=== PATIENT | female | born 1980 | race Two or more races ===

== ENCOUNTER 2017-11-22 08:03 | Outpatient (CLI) | payer BC, MEDICAID, OTHER ==
[~2017-11-22 08:03] MED LIST: FERUMOXYTOL (NON-ESRD) 510 MG/NS 100 ML IV PRN; NORMAL SALINE 250 ML IV PRN
[2017-11-22 08:18] VITALS: BP 117/79
== END 2017-11-22 10:05 | disposition home or self-care (01) ==
LOC: II 08:03 → 5TH 08:05 → II 10:05
PROVIDERS: ATTEND Internal Medicine
PROC: 3E033GC Introduction of Other Therapeutic Substance into Peripheral Vein, Percutaneous Approach (ICD-10-PCS; principal; 2017-11-22)
DX: D50.8 Other iron deficiency anemias (principal); K90.9 Intestinal malabsorption, unspecified
CPT/HCPCS: 96367; Q0138; 96365

== ENCOUNTER 2017-11-29 08:20 | Outpatient (CLI) | payer MEDICAID ==
[2017-11-29 09:04] VITALS: BP 113/76
== END 2017-11-29 09:50 | disposition home or self-care (01) ==
LOC: II 08:20 → 5TH 08:23 → II 09:50
PROVIDERS: ATTEND Internal Medicine
PROC: 3E033GC Introduction of Other Therapeutic Substance into Peripheral Vein, Percutaneous Approach (ICD-10-PCS; principal; 2017-11-29)
DX: D50.8 Other iron deficiency anemias (principal); K90.9 Intestinal malabsorption, unspecified
CPT/HCPCS: 96365; Q0138

== ENCOUNTER 2018-10-28 19:11 | Emergency (ER) | payer BC, MEDICAID ==
--- NOTE | 2018-10-28 20:49 | ER Document Report ---
ED Medical Screen (RME) - General Chief Complaint: Vag Bleeding, +preg <12wks Stated Complaint: ABDOMINAL PAIN AND VAGINAL BLEEDING Time Seen by Provider: 10/28/18 20:27 Primary Care Provider: SEYMOUR AKERS MD [Primary Care Provider] - Follow up as needed Notes: Patient is a G3, 38-year-old female who presents to the emergency department with a chief complaint of left sided pelvic pain. Patient states th at she is 10 weeks . She states that she noticed she was having some green vaginal discharge a few days ago and today she states that it was a mixed bright red and green discharge. The patient was seen here on 12 October and was diagnosed with a left ovarian cyst. Patient states that she feels like there is a lot of pressure in her abdomen. She is [facility] by [facility]. She took Tylenol shortly prior to arrival. Exam: Soft mildly tender left abdomen. I have greeted and performed a rapid initial assessment of this patient. A comprehensive ED assessment and evaluation of the patient, analysis of test results and completion of medical decision making process will be conducted by an additional ED providers. TRAVEL OUTSIDE OF THE [place] IN LAST 30 DAYS: No - Related Data Allergies/Adverse Reactions: No Known Allergies Allergy (Verified 10/28/18 20:30) Past Medical History - General Last Menstrual Period: 08/14/2018 - Social History Frequency of alcohol use: None Drug Abuse: None Renal/ Medical History: Denies: Hx Peritoneal Dialysis GI Medical History: Reports: Hx Gastroesophageal Reflux Disease - Immunizations Hx Diphtheria, Pertussis, Tetanus Vaccination: Yes Physical Exam - Vital signs Vitals: Temp Pulse Resp BP Pulse Ox 97.8 F 78 14 109/68 100 10/28/18 20:18 10/28/18 20:18 10/28/18 20:18 10/28/18 20:18 10/28/18 20:18 Course - Vital Signs Vital signs: Temp Pulse Resp BP Pulse Ox 97.8 F 78 14 109/68 100 10/28/18 20:18 10/28/18 20:18 10/28/18 20:18 10/28/18 20:18 10/28/18 20:18 Doctor's Discharge - Discharge Referrals: SEYMOUR AKERS MD [Primary Care Provider] - Follow up as needed
[2018-10-28 21:03] LABS: ABSOLUTE BASOPHILS # (AUTO) 0.1 10^3/uL (0.0-0.2); ABSOLUTE EOSINOPHILS # (AUTO) 0.2 10^3/uL (0.0-0.6); ABSOLUTE LYMPHOCYTES (AUTO) 2.8 10^3/uL (0.5-4.7); ABSOLUTE MONOCYTES (AUTO) 0.9 10^3/uL (0.1-1.4); BASOPHILS % (AUTO) 0.7 % (0-2); EOSINOPHILS % (AUTO) 1.7 % (0-6); HEMATOCRIT 38.1 % (36.0-47.0); HEMOGLOBIN 13.1 g/dL (12.0-15.5); LYMPHOCYTES % (AUTO) 23.6 % (13-45); MEAN CORPUSCULAR HEMOGLOBIN 28.5 pg (27.0-33.4); MEAN CORPUSCULAR HGB CONC 34.3 g/dL (32.0-36.0); MEAN CORPUSCULAR VOLUME 83 fl (80-97); MONOCYTES % (AUTO) 7.4 % (3-13); PLATELET COUNT 319 10^3/uL (150-450); RED BLOOD COUNT 4.59 10^6/uL (3.72-5.28); RED CELL DISTRIBUTION WIDTH 13.7 % (11.5-14.0); SEGMENTED NEUTROPHILS % (AUTO) 66.6 % (42-78); TOTAL CELLS COUNTED % (AUTO) 100 %
[2018-10-28 21:17] LABS: APPEARANCE,URINE SLIGHTLY-CLOUDY; BILIRUBIN,URINE NEGATIVE (NEGATIVE); COLOR,URINE YELLOW; GLUCOSE, URINE NEGATIVE (NEGATIVE); KETONES,URINE TRACE mg/dL (NEGATIVE); LEUKOCYTE ESTERASE,URINE NEGATIVE (NEGATIVE); NITRITE,URINE NEGATIVE (NEGATIVE); PROTEIN,URINE NEGATIVE (NEGATIVE); URINE SPECIFIC GRAVITY 1.032; UROBILINOGEN,URINE NEGATIVE mg/dL (<2.0)
[2018-10-28 21:19] LABS: ALANINE AMINOTRANSFERASE 14 U/L (9-52); ALBUMIN 3.9 g/dL (3.5-5.0); ALKALINE PHOSPHATASE 73 U/L (38-126); ANION GAP 9 (5-19); ASPARTATE AMINO TRANSFERASE 21 U/L (14-36); BILIRUBIN,DIRECT 0.2 mg/dL (0.0-0.4); BILIRUBIN,TOTAL 0.3 mg/dL (0.2-1.3); BLOOD UREA NITROGEN 12 mg/dL (7-20); CALCIUM 9.8 mg/dL (8.4-10.2); CARBON DIOXIDE 26 mmol/L (22-30); CHLORIDE 103 mmol/L (98-107); GLUCOSE 82 mg/dL (75-110); POTASSIUM 3.8 mmol/L (3.6-5.0)
--- NOTE | 2018-10-28 22:32 | RADIOLOGY REPORT (SQ) ---
EXAM DESCRIPTION: US TRANSVAGINAL COMPLETED DATE/TME: 10/28/2018 20:45 CLINICAL HISTORY: 38 years, Female, vaginal bleeding; pelvic pain COMPARISON: 10/12/2018 ultrasound TECHNIQUE: Emergent OB ultrasound LIMITATIONS: None. FINDINGS: The uterus measures 12.0 x 7.6 x 8.8 cm. There is a single, live intrauterine gestation with heart tones at 160 bpm. Current ultrasound age is 10 weeks 6 days. The maternal left ovary is not well seen likely due to its position in the pelvis. The right ovary measures 3.2 x 2.1 x 1.9 cm. Normal flow to the right ovary. No adnexal cyst or mass. No free fluid. Cervical length is 3.4 cm. There is a 1.2 x 2.1 x 1.0 cm hypoechoic area adjacent to the gestational sac likely small subchorionic hemorrhage. IMPRESSION: Single, live intrauterine gestation. Continued nonemergent follow-up recommended. Probable small subchorionic hemorrhage, as above copyright 2010 [employer]- All Rights Reserved
--- NOTE | 2018-10-28 23:11 | ER Document Report ---
ED General - General Chief Complaint: Vag Bleeding, +preg <12wks Stated Complaint: ABDOMINAL PAIN AND VAGINAL BLEEDING Time Seen by Provider: 10/28/18 20:27 Primary Care Provider: SEYMOUR AKERS MD [ACTIVE STAFF] - Follow up as needed TRAVEL OUTSIDE OF THE [place] IN LAST 30 DAYS: No - HPI Notes: Patient is a 38-year-old female that presents to the emergency department for chief complaint of abdominal pain and vaginal bleeding. Patient is G3, P1. She states she has had lower abdominal cramping that radiates into her low back intermittently throughout the day. She also reports vaginal bleeding that is a light pink. She has had one appointment with [facility] for her current . She denies any complications until this point. She believes her blood type is O+ and did not require RhoGam with previous . She does have a history of one miscarriage in the past. She denies any fever, chills, nausea and diarrhea. She states she had one episode of emesis yesterday. Past Medical History: Reviewed in chart Past Surgical History: Reviewed in chart Social History: Denies drugs alcohol or tobacco Family History: Reviewed and noncontributory for presenting illness Allergies: Reviewed, see documented allergy list. REVIEW OF SYSTEMS: CONSTITUTIONAL : No fever No chills No diaphoresis No recent illness EENT: No vision changes No congestion No sore throat CARDIOVASCULAR: No chest pain No palpitations RESPIRATORY: No shortness of breath No cough No difficulty breathing GASTROINTESTINAL: abdominal pain No nausea No vomiting No diarrhea GENITOURINARY: Vaginal bleeding No dysuria No hematuria No difficulty urinating MUSCULOSKELETAL: No back pain No leg pain No arm pain SKIN: No rashes No lesions LYMPHATIC: No swollen, enlarged glands. NEUROLOGICAL: No lightheadedness No headache No weakness No paresthesias PSYCHIATRIC: No anxiety No depression PHYSICAL EXAMINATION: Vital signs reviewed, nursing noted reviewed. GENERAL: Well-appearing, well-nourished and in no acute distress. HEAD: Atraumatic, normocephalic. EYES: Eyes appear normal, extraocular movements intact, sclera anicteric, co njunctiva are normal. ENT: nares patent, oropharynx clear without exudates. Moist mucous membranes. NECK: Normal range of motion, supple without lymphadenopathy LUNGS: Breath sounds clear to auscultation bilaterally and equal. No wheezes rales or rhonchi. HEART: Regular rate and rhythm without murmurs ABDOMEN: Soft, mild suprapubic tenderness, normoactive bowel sounds. No rebound, guarding, or rigidity. No masses appreciated. EXTREMITIES: Nontender, good range of motion, no pitting or edema. NEUROLOGICAL: No focal neurological deficits. Moves all extremities spontaneously Motor and sensory grossly intact on exam. PSYCH: Normal mood, normal affect. SKIN: Warm, Dry, normal turgor, no rashes or lesions noted on exposed skin - Related Data Allergies/Adverse Reactions: No Known Allergies Allergy (Verified 10/28/18 20:30) Past Medical History - General Last Menstrual Period: 08/14/2018 - Social History Smoking Status: Never Smoker Frequency of alcohol use: None Drug Abuse: None Family History: None Patient has suicidal ideation: No Patient has homicidal ideation: No Renal/ Medical History: Denies: Hx Peritoneal Dialysis GI Medical History: Reports: Hx Gastroesophageal Reflux Disease - Immunizations Hx Diphtheria, Pertussis, Tetanus Vaccination: Yes Physical Exam - Vital signs Vitals: Temp Pulse Resp BP Pulse Ox 97.8 F 78 14 109/68 100 10/28/18 20:18 10/28/18 20:18 10/28/18 20:18 10/28/18 20:18 10/28/18 20:18 Course - Re-evaluation Re-evalutation: 10/28/18 23:09 Vitals reviewed. Nursing notes reviewed. Patient's urinalysis is negative for infection. It does have a little bit of blood in it likely from her vaginal bleeding. Ultrasound was performed today which shows single live intrauterine gestation at 10 weeks and 6 days. heart tones were 160. She does not have ectopic . Patient's lab work shows a mild leukocytosis which is likely secondary to her . She is not acutely anemic. Patient did show me a card on her phone from the [email or web address] since she is a blood donor that shows her blood type is O+. I still recommended getting Rh factor drawn today to confirm that she is not requiring RhoGam. Patient will follow closely with [facility]. She was counseled on return precautions. Laboratory 10/28/18 10/28/18 10/28/18 20:50 20:50 20:50 WBC 12.0 H RBC 4.59 Hgb 13.1 Hct 38.1 MCV 83 MCH 28.5 MCHC 34.3 RDW 13.7 Plt Count 319 Seg Neutrophils % 66.6 Lymphocytes % 23.6 Monocytes % 7.4 Eosinophils % 1.7 Basophils % 0.7 Absolute Neutrophils 8.0 Absolute Lymphocytes 2.8 Absolute Monocytes 0.9 Absolute Eosinophils 0.2 Absolute Basophils 0.1 Sodium 137.6 Potassium 3.8 Chloride 103 Carbon Dioxide 26 Anion Gap 9 BUN 12 Creatinine 0.90 Est GFR ( Amer) > 60 Est GFR (Non-Af Amer) > 60 Glucose 82 Calcium 9.8 Total Bilirubin 0.3 Direct Bilirubin 0.2 Neonat Total Bilirubin Not Reportable Neonat Direct Bilirubin Not Reportable Neonat Indirect Bili Not Reportable AST 21 ALT 14 Alkaline Phosphatase 73 Total Protein 7.0 Albumin 3.9 Serum HCG, Qual POSITIVE H Beta HCG, Quant 86486.00 H Total Beta HCG POSITIVE Urine Color Urine Appearance Urine pH Ur Specific [place] Urine Protein Urine Glucose (UA) Urine Ketones Urine Blood Urine Nitrite Urine Bilirubin Urine Urobilinogen Ur Leukocyte Esterase Urine WBC (Auto) Urine RBC (Auto) Squamous Epi Cells Auto Urine Mucus (Auto) Urine Ascorbic Acid 10/28/18 20:50 WBC RBC Hgb Hct MCV MCH MCHC RDW Plt Count Seg Neutrophils % Lymphocytes % Monocytes % Eosinophils % Basophils % Absolute Neutrophils Absolute Lymphocytes Absolute Monocytes Absolute Eosinophils Absolute Basophils Sodium Potassium Chloride Carbon Dioxide Anion Gap BUN Creatinine Est GFR ( Amer) Est GFR (Non-Af Amer) Glucose Calcium Total Bilirubin Direct Bilirubin Neonat Total Bilirubin Neonat Direct Bilirubin Neonat Indirect Bili AST ALT Alkaline Phosphatase Total Protein Albumin Serum HCG, Qual Beta HCG, Quant Total Beta HCG Urine Color YELLOW Urine Appearance SLIGHTLY-CLOUDY Urine pH 6.0 Ur Specific [place] 1.032 Urine Protein NEGATIVE Urine Glucose (UA) NEGATIVE Urine Ketones TRACE H Urine Blood MODERATE H Urine Nitrite NEGATIVE Urine Bilirubin NEGATIVE Urine Urobilinogen NEGATIVE Ur Leukocyte Esterase NEGATIVE Urine WBC (Auto) 4 Urine RBC (Auto) 19 Squamous Epi Cells Auto 19 Urine Mucus (Auto) OCC Urine Ascorbic Acid 40 H Obstetrics Ultrasound 10/28/18 20:45 IMPRESSION: Single, live intrauterine gestation. Continued nonemergent follow-up recommended. Probable small subchorionic hemorrhage, as above copyright 2011 [employer] All Rights Reserved - Vital Signs Vital signs: Temp Pulse Resp BP Pulse Ox 98.5 F 68 16 106/69 97 10/28/18 22:19 10/28/18 22:19 10/28/18 22:19 10/28/18 22:19 10/28/18 22:19 - Laboratory Result Diagrams: 10/28/18 20:50 10/28/18 20:50 Laboratory results interpreted by me: 10/28/18 10/28/18 10/28/18 20:50 20:50 20:50 WBC 12.0 H Serum HCG, Qual POSITIVE H Beta HCG, Quant 71703.00 H Urine Ketones Urine Blood Urine Ascorbic Acid 10/28/18 20:50 WBC Serum HCG, Qual Beta HCG, Quant Urine Ketones TRACE H Urine Blood MODERATE H Urine Ascorbic Acid 40 H Discharge - Discharge Clinical Impression: Threatened , Vaginal bleeding affecting early Condition: Stable Disposition: HOME, SELF-CARE Instructions: Threatened Miscarriage ([facility]) Additional Instructions: Please return to the emergency department if you have any worsening, or concern of your symptoms. Please return to the emergency department if you develop chest pain, difficulty breathing, severe abdominal pain, or ongoing vomiting. Please follow-up with your primary care physician in 2-3 days and any other recommended physicians. If prescribed, take all medications as directed. If you have any questions or concerns do not hesitate to return the emergency department for evaluation. Follow with [facility] in the next 1 to 2 days for reevaluation Referrals: SEYMOUR AKRES MD [ACTIVE STAFF] - Follow up as needed [facility] [Provider Group] - Follow up tomorrow
[2018-10-29 00:37] VITALS: BP 105/66
== END 2018-10-29 00:37 | disposition home or self-care (01) ==
LOC: ER 19:11
DX: O20.0 Threatened abortion (principal); O26.891 Other specified pregnancy related conditions, first trimester; R10.30 Lower abdominal pain, unspecified; O99.111 Other diseases of the blood and blood-forming organs and certain disorders involving the immune mechanism complicating pregnancy, first trimester; D72.829 Elevated white blood cell count, unspecified; Z3A.10 10 weeks gestation of pregnancy; Z87.59 Personal history of other complications of pregnancy, childbirth and the puerperium
CPT/HCPCS: 36415; 76817; 80053; 81001; 84702; 84703; 85025; 86900; 86901; 99284

== ENCOUNTER 2019-02-20 16:30 | Outpatient (CLI) | payer MEDICAID ==
[2019-02-20 18:54] LABS: APPEARANCE,URINE CLEAR; BILIRUBIN,URINE NEGATIVE (NEGATIVE); COLOR,URINE YELLOW; GLUCOSE, URINE NEGATIVE (NEGATIVE); KETONES,URINE NEGATIVE (NEGATIVE); LEUKOCYTE ESTERASE,URINE NEGATIVE (NEGATIVE); NITRITE,URINE NEGATIVE (NEGATIVE); PROTEIN,URINE NEGATIVE (NEGATIVE); URINE SPECIFIC GRAVITY 1.024
[2019-02-20 19:05] LABS: URINE AMPHETAMINES SCREEN NEGATIVE; URINE BARBITURATES SCREEN NEGATIVE; URINE BENZODIAZEPINES SCREEN NEGATIVE; URINE COCAINE SCREEN NEGATIVE; URINE MARIJUANA (THC) SCREEN NEGATIVE; URINE METHADONE SCREEN NEGATIVE; URINE PHENCYCLIDINE SCREEN NEGATIVE
== END 2019-02-20 18:45 | disposition home or self-care (01) ==
LOC: LC 16:30
PROVIDERS: ATTEND Advanced Practice Midwife
PROC: 4A1HXCZ Monitoring of Products of Conception, Cardiac Rate, External Approach (ICD-10-PCS; principal; 2019-02-20)
DX: O26.892 Other specified pregnancy related conditions, second trimester (principal); R10.9 Unspecified abdominal pain; Z3A.27 27 weeks gestation of pregnancy
CPT/HCPCS: 59025; 80307; 81001

== ENCOUNTER 2019-05-12 17:28 | Inpatient (IN) | payer MEDICAID ==
[2019-05-12 18:08] LABS: APPEARANCE,URINE CLOUDY; BILIRUBIN,URINE NEGATIVE (NEGATIVE); COLOR,URINE YELLOW; GLUCOSE, URINE 50 mg/dL (NEGATIVE); KETONES,URINE NEGATIVE (NEGATIVE); LEUKOCYTE ESTERASE,URINE NEGATIVE (NEGATIVE); NITRITE,URINE NEGATIVE (NEGATIVE); PROTEIN,URINE 30 mg/dL (NEGATIVE); URINE SPECIFIC GRAVITY 1.017
[2019-05-12 18:31] LABS: URINE AMPHETAMINES SCREEN NEGATIVE; URINE BARBITURATES SCREEN NEGATIVE; URINE BENZODIAZEPINES SCREEN NEGATIVE; URINE COCAINE SCREEN NEGATIVE; URINE MARIJUANA (THC) SCREEN NEGATIVE; URINE METHADONE SCREEN NEGATIVE; URINE PHENCYCLIDINE SCREEN NEGATIVE
[2019-05-12] MEDS ORDERED: RINGERS SOLUTION,LACTATED 300 ML IV ONE (18:31)
[2019-05-12] MEDS ORDERED: OXYTOCIN/NORMAL SALINE 20 UNIT/1,000 ML RTUINJ IV PRN (18:31)
[2019-05-12] MEDS ORDERED: RINGERS SOLUTION,LACTATED 1,000 ML IV PRN (18:31)
[2019-05-12 19:06] LABS: ABSOLUTE BASOPHILS # (AUTO) 0.1 10^3/uL (0.0-0.2); ABSOLUTE EOSINOPHILS # (AUTO) 0.1 10^3/uL (0.0-0.6); ABSOLUTE LYMPHOCYTES (AUTO) 2.3 10^3/uL (0.5-4.7); ABSOLUTE MONOCYTES (AUTO) 0.8 10^3/uL (0.1-1.4); ABSOLUTE NEUT (AUTO) 7.3 10^3/uL (1.7-8.2); BASOPHILS % (AUTO) 0.9 % (0-2); EOSINOPHILS % (AUTO) 0.7 % (0-6); HEMOGLOBIN 12.6 g/dL (12.0-15.5); LYMPHOCYTES % (AUTO) 21.3 % (13-45); MEAN CORPUSCULAR HEMOGLOBIN 30.1 pg (27.0-33.4); MEAN CORPUSCULAR VOLUME 84 fl (80-97); MONOCYTES % (AUTO) 7.8 % (3-13); PLATELET COUNT 284 10^3/uL (150-450); RED BLOOD COUNT 4.19 10^6/uL (3.72-5.28); RED CELL DISTRIBUTION WIDTH 13.8 % (11.5-14.0); SEGMENTED NEUTROPHILS % (AUTO) 69.3 % (42-78); TOTAL CELLS COUNTED % (AUTO) 100 %; WHITE BLOOD COUNT 10.6 10^3/uL (4.0-10.5)
--- NOTE | 2019-05-12 19:14 | Admission Physical ---
Datetime Report Generated by CPN: 05/12/2019 19:14 CURRENT ADMISSION Chief Complaint: Suspected Ruptured Membranes Indication for Induction: Not Applicable Admit Impression : Term, Intrauterine Admit Plan: Admit to Unit ALLERGIES Medication Allergies: No Medication Allergies: No Known Allergies (10/28/2018) Latex: No Latex Allergies Food Allergies: none Environmental Allergies: none OBSTETRICAL HISTORY EDC: 05/21/2019 00:00 : 3 Para: 1 Term: 1 : 0 SAB: 1 IAB: 0 Ectopic: 0 Livin Cesareans: 0 VBACs: 0 Multiple Births: 0 SEE RECORDS Alcohol: No Marijuana : No Cocaine: No Other Illicit Drugs: No PHYSICAL EXAM General: Normal HEENT: Normal Neurologic: Normal Thyroid: Normal Heart: Normal Lungs: Normal Breast: Deferred Back: Normal Abdomen: Normal Genitourinary Exam: Normal Extremities: Normal DTRs: Normal Pelvic Type: Adequate FETUS A EGA: 38.5 INFORMED CONSENT Signature: with User ID: [email or web address]
[2019-05-12] MEDS ORDERED: LIDOCAINE 1% INJ-PF (10 MG/ML) 30 ML SDV ONE (19:26)
[2019-05-12] MEDS ORDERED: OXYTOCIN/NORMAL SALINE 20 UNIT/1,000 ML RTUINJ ONE (19:26)
[2019-05-12] MEDS ORDERED: MISOPROSTOL 0.2 MG TABLET ONE (19:26)
[2019-05-12] MEDS ORDERED: OXYTOCIN 10 UNIT/ML VIAL ONE (19:26)
[2019-05-13] MEDS ORDERED: OXYTOCIN/NORMAL SALINE 20 UNIT/1,000 ML RTUINJ IV PRN ×2 (05:53→11:37)
[2019-05-13] MEDS ORDERED: OXYTOCIN/NORMAL SALINE 20 UNIT/1,000 ML RTUINJ ONE (05:57)
[2019-05-13] MEDS ORDERED: BUPIVACAINE HCL 0.25 % INJ/PF (2.5 MG/1 ML) 30 ML VIAL ONE (08:16)
[2019-05-13] MEDS ORDERED: EPHEDRINE SULFATE INJ 50 MG/1 ML AMPULE ONE ×2 (08:16→08:18)
[2019-05-13] MEDS ORDERED: FENTANYL/BUPIVACAINE/NS/PF 300 MCG/150 ML RTUINJ EPI ONE (08:16)
[2019-05-13] MEDS ORDERED: ZOLPIDEM TARTRATE 5 MG TABLET PO PRN (11:37)
[2019-05-13] MEDS ORDERED: MEASLES,MUMPS&RUBELLA VACC/PF 0.5 ML VIAL SUBCUT PRN (11:37)
[2019-05-13] MEDS ORDERED: DIBUCAINE 1% OINTMENT 28 GM TP PRN (11:37)
[2019-05-13] MEDS ORDERED: BENZOCAINE/MENTHOL AEROSOL SPRAY 56 ML TOP PRN (11:37)
[2019-05-13] MEDS ORDERED: DIPH/PERTUSS(ACELL)/TETANUS VAC/PF 0.5 ML SYR (>=10YO) IM PRN (11:37)
[2019-05-13] MEDS: IBUPROFEN 800 MG TABLET PO SCH ×2 (18:16→22:10)
[2019-05-13] MEDS: DOCUSATE SODIUM 100 MG CAPSULE PO SCH (18:23)
[2019-05-13] MEDS: ACETAMINOPHEN WITH CODEINE #3 TABLET PO PRN (20:33)
[2019-05-14] MEDS: IBUPROFEN 800 MG TABLET PO SCH ×3 (05:11→22:53)
[2019-05-14 07:01] LABS: HEMATOCRIT 32.2 % (36.0-47.0); HEMOGLOBIN 11.4 g/dL (12.0-15.5); MEAN CORPUSCULAR HGB CONC 35.3 g/dL (32.0-36.0); MEAN CORPUSCULAR VOLUME 85 fl (80-97); PLATELET COUNT 227 10^3/uL (150-450); RED BLOOD COUNT 3.79 10^6/uL (3.72-5.28); RED CELL DISTRIBUTION WIDTH 13.7 % (11.5-14.0); WHITE BLOOD COUNT 12.3 10^3/uL (4.0-10.5)
[2019-05-14] MEDS: PRENATAL VITAMIN W DHA CAPSULE PO SCH (09:24)
[2019-05-14] MEDS: SENNOSIDES/DOCUSATE 8.6-50 MG 1 EACH TABLET PO SCH (09:24)
[2019-05-14] MEDS: FERROUS SULFATE 325 MG TABLET PO SCH (09:24)
[2019-05-14] MEDS: DOCUSATE SODIUM 100 MG CAPSULE PO SCH ×2 (09:24→17:43)
--- NOTE | 2019-05-14 10:59 | PDOC PROGRESS REPORT ---
Subjective-OB Progress Note for:: 05/14/19 Subjective: Pt doing well, no concerns. She reports light bleeing, reg diet and voiding without difficulty. Physical Exam (OB) Vital Signs: Temp Pulse Resp BP Pulse Ox 97.7 F 70 16 97/60 L 99 05/14/19 07:55 05/14/19 07:55 05/14/19 07:55 05/14/19 07:55 05/14/19 07:55 Intake & Output 05/13/19 05/14/19 05/15/19 06:59 06:59 06:59 Intake Total 1160 Balance 1160 Weight 83.9 kg - Lochia Lochia Amount: Scant < 10 ml Lochia Color: Rubra/Red - Abdomen Description: Soft Hernia Present: No Fundal Description: Firm, Midline Fundal Height: u/u - u/2 Objective-Diagnostic Laboratory: 05/14/19 06:53 05/14/19 06:53 WBC 12.3 H RBC 3.79 Hgb 11.4 L Hct 32.2 L MCV 85 MCH 30.0 MCHC 35.3 RDW 13.7 Plt Count 227 Assessment and Plan(PN) - Assessment and Plan (1) Vaginal delivery Is this a current diagnosis for this admission?: Yes (2) Normal course Is this a current diagnosis for this admission?: Yes - Time Spent with Patient Time with patient: Less than 15 minutes Medications reviewed and adjusted accordingly: Yes - Disposition Anticipated Discharge: Home Within: within 24 hours
[2019-05-14] MEDS: ACETAMINOPHEN WITH CODEINE #3 TABLET PO PRN (20:01)
[2019-05-15] MEDS: IBUPROFEN 800 MG TABLET PO SCH ×2 (07:00→13:48)
[2019-05-15 08:27] VITALS: BP 100/65
[2019-05-15] MEDS: PRENATAL VITAMIN W DHA CAPSULE PO SCH (09:56)
[2019-05-15] MEDS: FERROUS SULFATE 325 MG TABLET PO SCH (09:56)
[2019-05-15] MEDS: DOCUSATE SODIUM 100 MG CAPSULE PO SCH ×2 (09:56→17:28)
[2019-05-15] MEDS: SENNOSIDES/DOCUSATE 8.6-50 MG 1 EACH TABLET PO SCH (09:56)
--- NOTE | 2019-05-15 12:52 | PDOC DISCHARGE SUMMARY ---
Impression - Admit/DC Date/PCP Admission Date/Primary Care Provider: 05/12/19 18:31 YANELIS SMITH MD Discharge Date: 05/15/19 - Discharge Diagnosis (1) Advanced maternal age (AMA) in Is this a current diagnosis for this admission?: Yes (2) Normal course Is this a current diagnosis for this admission?: Yes (3) Spontaneous rupture of amniotic membranes Is this a current diagnosis for this admission?: Yes (4) Vaginal delivery Is this a current diagnosis for this admission?: Yes - Additional Information Discharge Diet: Regular Discharge Activity: Balance Activity w/Rest, Pelvic Rest Referrals: YANELIS SMITH MD [Primary Care Provider] - Prescriptions: Ibuprofen [Motrin 800 mg Tablet] 800 mg PO Q8HP PRN #90 tablet PRN Reason: Home Medications: Vits96/Iron Fum/Folic [ Tablet] 1 tab PO DAILY 05/12/19 Ibuprofen [Motrin 800 mg Tablet] 800 mg PO Q8HP PRN #90 tablet 05/15/19 HPI Gestational Age: 38+5 Reason(s) for Admission: Onset of Labor Procedures: NST Intrapartum Procedure(s): Spontaneous Vaginal Delivery Results Laboratory Results: WBC 12.3 10^3/uL (4.0-10.5) H 05/14/19 06:53 RBC 3.79 10^6/uL (3.72-5.28) 05/14/19 06:53 Hgb 11.4 g/dL (12.0-15.5) L 05/14/19 06:53 Hct 32.2 % (36.0-47.0) L 05/14/19 06:53 MCV 85 fl (80-97) 05/14/19 06:53 MCH 30.0 pg (27.0-33.4) 05/14/19 06:53 MCHC 35.3 g/dL (32.0-36.0) 05/14/19 06:53 RDW 13.7 % (11.5-14.0) 05/14/19 06:53 Plt Count 227 10^3/uL (150-450) 05/14/19 06:53 Lymph % (Auto) 21.3 % (13-45) 05/12/19 18:50 Love % (Auto) 7.8 % (3-13) 05/12/19 18:50 Eos % (Auto) 0.7 % (0-6) 05/12/19 18:50 Baso % (Auto) 0.9 % (0-2) 05/12/19 18:50 Absolute Neuts (auto) 7.3 10^3/uL (1.7-8.2) 05/12/19 18:50 Absolute Lymphs (auto) 2.3 10^3/uL (0.5-4.7) 05/12/19 18:50 Absolute Monos (auto) 0.8 10^3/uL (0.1-1.4) 05/12/19 18:50 Absolute Eos (auto) 0.1 10^3/uL (0.0-0.6) 05/12/19 18:50 Absolute Basos (auto) 0.1 10^3/uL (0.0-0.2) 05/12/19 18:50 Seg Neutrophils % 69.3 % (42-78) 05/12/19 18:50 Urine Color YELLOW 05/12/19 17:37 Urine Appearance CLOUDY 05/12/19 17:37 Urine pH 6.0 (5.0-9.0) 05/12/19 17:37 Ur Specific [place] 1.017 05/12/19 17:37 Urine Protein 30 mg/dL (NEGATIVE) H 05/12/19 17:37 Urine Glucose (UA) 50 mg/dL (NEGATIVE) H 05/12/19 17:37 Urine Ketones NEGATIVE mg/dL (NEGATIVE) 05/12/19 17:37 Urine Blood MODERATE (NEGATIVE) H 05/12/19 17:37 Urine Nitrite NEGATIVE (NEGATIVE) 05/12/19 17:37 Urine Bilirubin NEGATIVE (NEGATIVE) 05/12/19 17:37 Urine Urobilinogen 4.0 mg/dL (<2.0) H 05/12/19 17:37 Ur Leukocyte Esterase NEGATIVE (NEGATIVE) 05/12/19 17:37 Urine Ascorbic Acid NEGATIVE (NEGATIVE) 05/12/19 17:37 Membranes Rupture POSITIVE (NEGATIVE) H 05/12/19 17:44 Urine Opiates Screen NEGATIVE 05/12/19 17:37 Urine Methadone Screen NEGATIVE 05/12/19 17:37 Ur Barbiturates Screen NEGATIVE 02/09/20 17:37 Ur Phencyclidine Scrn NEGATIVE 05/12/19 17:37 Ur Amphetamines Screen NEGATIVE 05/12/19 17:37 U Benzodiazepines Scrn NEGATIVE 05/12/19 17:37 Urine Cocaine Screen NEGATIVE 05/12/19 17:37 U Marijuana (THC) Screen NEGATIVE 05/12/19 17:37 RPR NONREACTIVE (NONREACTIVE) 05/12/19 18:50 Blood Type O POSITIVE 05/12/19 18:50 Antibody Screen NEGATIVE 05/12/19 18:50 Plan Plan of Treatment: follow up in 4 weeks at [facility] for post check
--- NOTE | 2019-05-16 14:50 | Delivery Summary ---
Del Sum A-C Datetime Report Generated by CPN: 05/16/2019 14:49 DELIVERY PERSONNEL DELIVERY PERSONNEL: [id number] Delivery Doctor:: Marcela Wakefield CNM Labor and Delivery Nurse:: Vivienne Goldsmith RN Nursery Nurse:: Regina Saez RN Labor Employment Associate/SOFTWARE SUPPORT REPRESENTATIVE: Ilene Reyes, LEGAL STENOGRAPHER MATERNAL INFORMATION Delivery Anesthesia: Epidural Medications After Delivery: Pitocin Drip 20 Units/1000ml NSS Estimated Blood Loss (ml): 100 Maternal Complications: None Provider Comments: of VFI, delivered MADELYN, NC x 1 easily reduced. Placed on pts abdoman, crying and in stable condition. Terminal mec noted at delivery. Cord clamped and cut after one minute. Cord blood collected. Placenta S/C/I with IV pitocin infusing, FF. Perineum intact. Minimal EBL. Pt and baby left in stable condition, skin to skin. She plans to breastfeed. Placenta to path due to hx of abnormal AFP. Attending MD is Dr Aguilar LABOR SUMMARY EDC: 05/21/2019 00:00 No. Babies in Womb: 1 Attempted: No Labor Anesthesia: Epidural LABOR INFORMATION Onset of Labor: 05/13/2019 08:30 Complete Dilatation: 05/13/2019 10:50 Oxytocin: Augmentation Group B Beta Strep: negative Steroids Given: None Reason Steroids Not Administered: Not Applicable MEMBRANES Membranes Rupture Method: Spontaneous Rupture of Membranes: 05/12/2019 17:00 Length of Rupture (hr): 18.30 Amniotic Fluid Color: Clear Amniotic Fluid Amount: Small Amniotic Fluid Odor: Normal STAGES OF LABOR Stage 1 hr: 2 Stage 1 min: 20 Stage 2 hr: 0 Stage 2 min: 28 Stage 3 hr: 0 Stage 3 min: 2 Total Time in Labor hr: 2 Total Time in Labor min: 50 VAGINAL DELIVERY Episiotomy: None Laceration #1: None Laceration Extension #1: N/A Laceration Repair: Not Applicable Sponge Count Correct: Yes Sharps Count Correct: Yes BABY A INFORMATION Delivery Date/Time: 05/13/2019 11:18 Method of Delivery: Vaginal Nurse Controlled Delivery: No Born in Route : No : N/A Forceps: N/A Vacuum Extraction: N/A Shoulder Dystocia : No PRESENTATION/POSITION BABY A Presentation: Cephalic Cephalic Presentation: Vertex Vertex Position: Left Occipital Anterior Breech Presentation: N/A PLACENTA INFORMATION BABY A Placenta Delivery Time : 05/13/2019 11:20 Placenta Method of Delivery: Spontaneous Placenta Status: Delivered SCORES BABY A Heart Rate 1 min: >100 bpm Resp Effort 1 min: Good Cry Reflex Irritability 1 min: Cough or Sneeze or Pulls Away Muscle Tone 1 min: Active Motion Color 1 min: Body [place], Extremities Blue Resuscitation Effort 1 min: Tactile Stimulation SCORE 1 MIN: 9 Heart Rate 5 min: >100 bpm Resp Effort 5 min: Good Cry Reflex Irritability 5 min: Cough or Sneeze or Pulls Away Muscle Tone 5 min: Active Motion Color 5 min: Body [place], Extremities Blue Resuscitation Effort 5 min: N/A SCORE 5 MIN: 9 INFANT INFORMATION BABY A Gestational Age at Delivery: 38.0 Gestational Status: Early Term- 37- 38.6 Weeks Infant Outcome : Liveborn Condition : Stable Sex: Female IDENTIFICATION BABY A Infant Verification Date/Time: 05/13/2019 11:18 ID Band Number: [id number] Mother's Name Verified: Yes Infant RN Verifying Infant: Rolando Curran RN CORD INFORMATION BABY A No. Cord Vessels: 3 Nuchal Cord : Around Neck x1, Loose ASSESSMENT BABY A Infant Complications: None Physical Findings at Delivery: Caput Succedaneum Infant Respirations: Appears Normal Transferred To: Remains with Mother BABY B INFORMATION : N/A SIGNATURES Assignment: Addie Aguilar MD Signature: with User ID: Lake : with User ID: Lake
== END 2019-05-15 18:17 | disposition home or self-care (01) | DRG 807 ==
LOC: LC 17:28 → LR 18:31 → 2S 05-13 17:25
PROVIDERS: ADMIT Obstetrics & Gynecology Gynecology; ATTEND Obstetrics & Gynecology Gynecology
PROC: 4A1HXCZ Monitoring of Products of Conception, Cardiac Rate, External Approach (ICD-10-PCS; 2019-05-12)
PROC: 10E0XZZ Delivery of Products of Conception, External Approach (ICD-10-PCS; principal; 2019-05-13)
DX: O69.81X0 Labor and delivery complicated by cord around neck, without compression, not applicable or unspecified (principal); Z37.0 Single live birth; Z3A.38 38 weeks gestation of pregnancy
CPT/HCPCS: 36415; 80307; 81005; 84112; 85025; 85027; 86592; 86850; 86900; 86901; 88307; J2590; J3010; J3490

== ENCOUNTER 2020-01-23 09:25 | Day surgery (SDC) | payer MEDICAID ==
[2020-01-20 14:22] LABS: HEMOGLOBIN 13.9 g/dL (12.0-15.5); MEAN CORPUSCULAR HEMOGLOBIN 30.4 pg (27.0-33.4); MEAN CORPUSCULAR HGB CONC 35.6 g/dL (32.0-36.0); MEAN CORPUSCULAR VOLUME 85 fl (80-97); PLATELET COUNT 287 10^3/uL (150-450); RED BLOOD COUNT 4.56 10^6/uL (3.72-5.28); RED CELL DISTRIBUTION WIDTH 12.6 % (11.5-14.0); WHITE BLOOD COUNT 7.8 10^3/uL (4.0-10.5)
[2020-01-20 14:34] LABS: APPEARANCE,URINE SLIGHTLY-CLOUDY; BILIRUBIN,URINE NEGATIVE (NEGATIVE); COLOR,URINE YELLOW; GLUCOSE, URINE NEGATIVE (NEGATIVE); KETONES,URINE NEGATIVE (NEGATIVE); LEUKOCYTE ESTERASE,URINE NEGATIVE (NEGATIVE); NITRITE,URINE POSITIVE (NEGATIVE); PROTEIN,URINE NEGATIVE (NEGATIVE); URINE SPECIFIC GRAVITY 1.024
[~2020-01-23 09:25] MED LIST changes: +FENTANYL CITRATE INJ/PF 250 MCG/5 ML AMPULE ONE; -FERUMOXYTOL (NON-ESRD) 510 MG/NS 100 ML IV PRN; +LACTATED RINGERS 1000 ML IV PRN; +LIDOCAINE 0.5% INJ-PF (5 MG/ML) 50 ML SDV SUBCUT PRN; +MIDAZOLAM 2 MG/2 ML INJ ONE; -NORMAL SALINE 250 ML IV PRN; +PROPOFOL INJ 200 MG/20 ML VIAL IV ONE; +SUGAMMADEX SODIUM 200 MG/2 ML SDV IV ONE
[2020-01-23] MEDS ORDERED: DEXAMETHASONE SOD PHOSPHATE INJ 4 MG/1 ML VIAL ONE (10:00)
[2020-01-23] MEDS ORDERED: DIPHENHYDRAMINE HCL 50 MG/ML VIAL ONE (10:00)
[2020-01-23] MEDS ORDERED: ONDANSETRON HCL INJ/PF 4 MG/2 ML SDV ONE (10:00)
[2020-01-23] MEDS ORDERED: ROCURONIUM BROMIDE INJ 50 MG/5 ML VIAL IV ONE (10:00)
[2020-01-23] MEDS ORDERED: METOCLOPRAMIDE HCL INJ/PF 10 MG/2 ML SDV ONE (10:00)
[2020-01-23] MEDS ORDERED: IBUPROFEN 800 MG TABLET PO PRN (11:18)
[2020-01-23] MEDS ORDERED: KETOROLAC TROMETHAMINE INJ/PF 30 MG/1 ML SDV IV PRN (11:18)
[2020-01-23] MEDS ORDERED: RINGERS SOLUTION,LACTATED 1,000 ML IV PRN (11:18)
[2020-01-23] MEDS ORDERED: OXYCODONE-ACETAMINOPHEN 5-325 MG TABLET PO PRN ×2 (11:18)
--- NOTE | 2020-01-23 11:23 | Operative Report ---
Operative Report DATE OF SURGERY: 01/23/20 PREOPERATIVE DIAGNOSIS: Patient desires laparoscopic tubal ligation with cautery POSTOPERATIVE DIAGNOSIS: Same OPERATION: Laparoscopic bilateral tubal ligation with cautery SURGEON: MADDIE PERRY ANESTHESIA: GA TISSUE REMOVED OR ALTERED: Fallopian tubes COMPLICATIONS: Problems with emesis during intubation ESTIMATED BLOOD LOSS: Minimal INTRAOPERATIVE FINDINGS: Normal uterus tubes and ovaries PROCEDURE: Patient was taken the OR and placed in supine position. General anesthesia was induced. There was some emesis with the initial intubation. She was then placed in a dorsolithotomy position using Nish stirrups. Her perineum abdomen vagina were prepared and draped in a sterile fashion. She had just voided and did not need catheterization. An incision was made the umbilicus natural umbilical defect was identified and dilated with Karen clamp. This allowed placement of a blunt port. Laparoscopy confirmed appropriate placement and the abdomen was insufflated with CO2 gas. View of the pelvis was good. Each fallopian tube was identified by its fimbriated end and then cauterized at the mid isthmic portion moving back toward the uterine uterine cornu. 5 successive cautery were taken on each tube bilaterally. Photos were taken. At the end of the case the gas was allowed to escape from the abdomen. This scope and port were removed at the same time. The fascia at the umbilicus was closed with a 2- 0 Vicryl stitch and skin closed with a 4-0 undyed Vicryl stitch. A Band-Aid was placed over the incision. The patient was placed back in supine position extubated in the OR and brought to recovery room stable condition. Her O2 saturations were good during the entire case. She will be watched in recovery to evaluate if there was any aspiration.
--- NOTE | 2020-01-23 11:26 | Discharge Summary ---
Discharge Summary (SDC) - Discharge Final Diagnosis: Encounter for tubal ligation Date of Surgery: 01/23/20 Discharge Date: 01/23/20 Condition: Good Forms: ASU Anesthesia D/C Instruction, Discharge POC-Surgical Service Prescriptions: Oxycodone HCl/Acetaminophen [Percocet 5-325 mg Tablet] 1 tab PO Q4HP PRN #20 tablet PRN Reason: Ibuprofen [Motrin 800 mg Tablet] 800 mg PO Q8H PRN #30 tablet PRN Reason: Referrals: MADDIE PERRY MD [ACTIVE STAFF] - Discharge Diet: Regular Discharge Activity: Activity As Tolerated, Balance Activity w/Rest Report the Following to Your Physician Immediately: Shortness of Breath, Fever over 101 Degrees
[2020-01-23] MEDS ORDERED: ACETAMINOPHEN 325 MG TABLET ONE (12:01)
[2020-01-23] MEDS ORDERED: ACETAMINOPHEN 325 MG TABLET PO ONE (12:05)
[2020-01-23] MEDS ORDERED: OXYCODONE-ACETAMINOPHEN 5-325 MG TABLET ONE (12:22)
[2020-01-23] MEDS ORDERED: IBUPROFEN 800 MG TABLET ONE (12:35)
[2020-01-23 13:46] VITALS: BP 108/72
== END 2020-01-23 13:40 | disposition home or self-care (01) ==
LOC: OROUT 09:25
PROVIDERS: ATTEND Obstetrics & Gynecology
DX: Z30.2 Encounter for sterilization (principal); T88.59XA Other complications of anesthesia, initial encounter; R11.10 Vomiting, unspecified; Y84.8 Other medical procedures as the cause of abnormal reaction of the patient, or of later complication, without mention of misadventure at the time of the procedure; Z03.818 Encounter for observation for suspected exposure to other biological agents ruled out
CPT/HCPCS: 85027; 87635; 81005; 81025; 58670; J3490 ×4; J2250; J1100; J1200; J3010; J2765; J2405; J2704; C9803; 851